=== PATIENT | male | born 1950 | race Caucasian/White ===

== ENCOUNTER → 2017-10-11 | Outpatient (REF) | payer MEDICARE | LOC: M LAB REF 12:45 | DX: C15.9 Malignant neoplasm of esophagus, unspecified (principal) | CPT/HCPCS: 82378 ==

== ENCOUNTER → 2017-10-25 | Outpatient (CLI) | payer MEDICARE | LOC: M ONCR 13:43 | DX: C16.0 Malignant neoplasm of cardia (principal) | CPT/HCPCS: G0463 ==

== ENCOUNTER 2017-10-31 09:51 | Outpatient (RCR) | payer MEDICARE | END 2017-11-09 | LOC: M ONCR 09:51 | DX: C16.0 Malignant neoplasm of cardia (principal) | CPT/HCPCS: 77300 ==

== ENCOUNTER 2017-11-13 09:29 | Outpatient (RCR) | payer MEDICARE | END 2017-12-09 | LOC: M ONCR 09:29 | DX: C16.0 Malignant neoplasm of cardia (principal) | CPT/HCPCS: 77336 ==

== ENCOUNTER 2017-12-10 11:31 | Outpatient (RCR) | payer MEDICARE | END 2018-01-09 | LOC: M ONCR 12-11 11:32 | DX: C16.0 Malignant neoplasm of cardia (principal) | CPT/HCPCS: 77336 ==

== ENCOUNTER → 2018-01-16 | Outpatient (CLI) | payer MEDICARE | LOC: M ONCM 07:32 | DX: C16.0 Malignant neoplasm of cardia (principal) | CPT/HCPCS: 36415 ==